=== PATIENT | female | born 1980 | race Caucasian/White ===

== ENCOUNTER 2018-10-06 10:08 | Emergency (ER) | payer OTHER ==
[~2018-10-06] VITALS: Ht 175.3 cm; Wt 90.7 kg
[2018-10-06] MEDS ORDERED: KETOROLAC TROMETH 60MG/2ML VIAL IM ONE (10:45)
[2018-10-06] MEDS ORDERED: KETOROLAC TROMETH 15 mg/ml 1ML VL IV ONE (11:00)
[2018-10-06] MEDS ORDERED: ONDANSETRON HCL 4 MG/2 ML VIAL ONE (11:01)
[2018-10-06 11:15] LABS: Urine Bacteria NONE SEEN /hpf (None Seen); Urine Blood Negative /uL (Negative); Urine Mucus FEW (None Seen); Urine Specific Gravity 1.024 (1.001-1.035); Urine WBC 8 /hpf (0 - 5)
[2018-10-06] MEDS ORDERED: ONDANSETRON HCL 4 MG/2 ML VIAL IV ONE (11:15)
[2018-10-06 11:32] LABS: Basophils # (auto) 0.1 uL; Basophils % (auto) 0.5 % (0.0-2.0); Eosinophils # (auto) 0.2 uL; Hematocrit 46.2 % (36.0-46.0); Hemoglobin 15.3 g/dL (12.2-16.2); Lymphocytes # (auto) 4.3 uL; Mean Corpuscular Hemoglobin 28.7 pg (28.0-32.0); Mean Corpuscular Hgb Conc. 33.1 g/dL (32.0-36.0); Mean Corpuscular Volume 86.8 fL (80.0-100.0); Monocytes # (auto) 0.9 uL; Monocytes % (auto) 4.5 % (0.0-12.0); Neutrophils # (auto) 13.9 uL; Nucleated Red Blood Cells % 0.1 %; Platelet Count (auto) 278 10^3/uL (140-450); Red Blood Cells 5.32 10^6/uL (4.0-5.20); Red Cell Distribution Width 16.6 % (11.8-14.3); White Blood Cell 19.3 10^3/uL (4.4-10.8)
[2018-10-06 11:51] LABS: Albumin 3.8 g/dL (3.4-5.0); BUN/Creatinine Ratio 10.5; Calcium 9.8 mg/dL (8.5-10.1); Potassium 3.9 mmol/L (3.5-5.1)
[2018-10-06 11:53] LABS: Bilirubin, Total 0.3 mg/dL (0.2-1.0); Total Protein 7.9 g/dL (6.4-8.2)
[2018-10-06] MEDS ORDERED: LORazepam 2MG/ML-1ML VIAL IV ONE (12:45)
[2018-10-06] MEDS ORDERED: HYDROmorphone HCL 2 MG/ML VL IV ONE (12:45)
[2018-10-06] MEDS ORDERED: cefTRIAXone 1GM/50ML D5W 50 ML IV ONE (13:45)
[2018-10-06 14:32] VITALS: BP 118/69
== END 2018-10-06 15:45 | disposition left against medical advice (07) ==
LOC: EDBD 10:08 → ER 10:08
DX: N39.0 Urinary tract infection, site not specified (principal); D72.829 Elevated white blood cell count, unspecified; F41.9 Anxiety disorder, unspecified; F17.210 Nicotine dependence, cigarettes, uncomplicated; F12.10 Cannabis abuse, uncomplicated; Z90.49 Acquired absence of other specified parts of digestive tract; Z86.73 Personal history of transient ischemic attack (TIA), and cerebral infarction without residual deficits
CPT/HCPCS: 36415; 74176; 80053; 81001; 81025; 83690; 85025; 96365; 96375; 99284; J0696; J1170; J1885; J2060; J2405